=== PATIENT | female | born 1975 | race Caucasian/White ===

== ENCOUNTER 2016-12-11 14:54 | Emergency (ER) | payer SELFPAY ==
[~2016-12-11 14:54] MED LIST: ALPR1CON PO; ASPI325T PO; IBUP800T23 PO; LORTA10 PO
[2016-12-11 15:38] VITALS: BP 113/54; PULSE 143; RESP 20; TEMP 99.2; O2SAT 95
--- NOTE | 2016-12-11 15:50 | PD ---
HPI Chief Complaint: Psychiatric Symptoms Time Seen by Provider: 15:48 Travel History International Travel<30 days: No Contact w/Intl Traveler<30days: No Traveled to known affect area: No History of Present Illness HPI 41-year-old Afro-[place] female brought in under the tab ticketbroker act with obvious acute intoxication and agitation with altered mental status. Patient is directable but confused and agitated. Further medical history is unable to be obtained due to the patient's clinical status. She is allergic to sulfa. PFSH Past Medical History Medical History: Unable to Obtain Anxiety: Yes Musculoskeletal: Yes (SCOLIOSIS) Social History Alcohol Use: No Tobacco Use: Yes (1 PPD) Substance Use: Yes (IV DRUG USE) Allergies-Medications (Allergen,Severity, Reaction): Coded Allergies: Sulfa (Verified Allergy, Unknown, 11/27/13) Reported Meds & Prescriptions Reported Meds & Active Scripts Active Reported Ibuprofen 800 Mg Tab 800 Mg PO Q6H PRN Aspirin 325 Mg Tab (Aspirin) 325 Mg Tab 325 Mg PO Q6H PRN Xanax (Alprazolam) 1 Mg/Ml Con 2 Mg PO TID Lortab 10/325 Tab (Hydrocodone-Acetaminophen) 10 Mg/325 Mg Tab 1 Tab PO TID PRN Review of Systems ROS Limitations: Intoxication, Altered Mental Status, Psychotic Physical Exam Narrative GENERAL: Patient is agitated with generalized movements while sitting in the chair. Patient is obviously intoxicated. SKIN: Warm and dry. No signs of trauma. No obvious signs of puncture wounds, but exam is limited as we are in the ambulance cardona. HEAD: Atraumatic. Normocephalic. EYES: Pupils equal and round. No scleral icterus. No injection or drainage. ENT: No nasal bleeding or discharge. Mucous membranes pink and moist. Pharynx is clear. NECK: Trachea midline. Neck is supple. CARDIOVASCULAR: Tachycardic rate and normal rhythm. RESPIRATORY: No accessory muscle use. Clear to auscultation. Breath sounds equal bilaterally. MUSCULOSKELETAL: Extremities without clubbing, cyanosis, or edema. No obvious deformities. NEUROLOGICAL: Awake and alert. No obvious cranial nerve deficits. Motor grossly within normal limits. Five out of 5 muscle strength in the arms and legs. Normal speech. PSYCHIATRIC: Appropriate mood and affect; insight and judgment normal. Data Data Last Documented VS Vital Signs Date Time Temp Pulse Resp B/P Pulse Ox O2 Delivery O2 Flow Rate FiO2 3/6/17 15:38 99.2 143 20 113/54 95 Room Air Orders Complete Blood Count With Diff (12/11/16 15:40) Comprehensive Metabolic Panel (12/11/16 15:40) Urinalysis - C+S If Indicated (12/11/16 15:40) Ed Urine Pregnancytest Poc (12/11/16 15:40) Psych Screen (12/11/16 15:40) Drug Screen, Random Urine (12/11/16 15:40) Alcohol (Ethanol) (12/11/16 15:40) Urine Culture (12/11/16 15:40) Lorazepam Inj (Ativan Inj) (12/11/16 16:30) Diphenhydramine Inj (Benadryl Inj) (12/11/16 16:30) Haloperidol Inj (Haldol Inj) (12/11/16 16:30) Sodium Chlor 0.9% 1000 Ml Inj (Ns 1000 M (12/11/16 16:45) Ceftriaxone Inj (Rocephin Inj) (12/11/16 16:45) Labs Laboratory Tests Test 12/11/16 15:40 White Blood Count 19.1 TH/MM3 Red Blood Count 4.48 MIL/MM3 Hemoglobin 13.5 GM/DL Hematocrit 39.9 % Mean Corpuscular Volume 89.1 FL Mean Corpuscular Hemoglobin 30.2 PG Mean Corpuscular Hemoglobin 33.9 % Concent Red Cell Distribution Width 12.8 % Platelet Count 297 TH/MM3 Mean Platelet Volume 7.6 FL Neutrophils (%) (Auto) 84.6 % Lymphocytes (%) (Auto) 6.4 % Monocytes (%) (Auto) 8.4 % Eosinophils (%) (Auto) 0.3 % Basophils (%) (Auto) 0.3 % Neutrophils # (Auto) 16.1 TH/MM3 Lymphocytes # (Auto) 1.2 TH/MM3 Monocytes # (Auto) 1.6 TH/MM3 Eosinophils # (Auto) 0.1 TH/MM3 Basophils # (Auto) 0.1 TH/MM3 CBC Comment DIFF FINAL Differential Comment Urine Color YELLOW Urine Turbidity HAZY Urine pH 6.0 Urine Specific [place] 1.020 Urine Protein 30 mg/dL Urine Glucose (UA) NEG mg/dL Urine Ketones NEG mg/dL Urine Occult Blood NEG Urine Nitrite NEG Urine Bilirubin NEG Urine Urobilinogen 2.0 MG/DL Urine Leukocyte Esterase TRACE Urine RBC 6 /hpf Urine WBC 10 /hpf Urine Squamous Epithelial 4 /hpf Cells Urine Bacteria RARE /hpf Urine Hyaline Casts 20 /lpf Urine Mucus FEW /lpf Microscopic Urinalysis Comment CULTURE INDICATED Sodium Level 146 MEQ/L Potassium Level 3.9 MEQ/L Chloride Level 110 MEQ/L Carbon Dioxide Level 24.1 MEQ/L Anion Gap 12 MEQ/L Blood Urea Nitrogen 18 MG/DL Creatinine 1.84 MG/DL Estimat Glomerular Filtration 30 ML/MIN Rate Random Glucose 84 MG/DL Calcium Level 9.3 MG/DL Total Bilirubin 0.7 MG/DL Aspartate Amino Transf 48 U/L (AST/SGOT) Alanine Aminotransferase 57 U/L (ALT/SGPT) Alkaline Phosphatase 105 U/L Total Protein 8.7 GM/DL Albumin 4.3 GM/DL Urine Opiates Screen NEG Urine Barbiturates Screen NEG Urine Amphetamines Screen POS Urine Benzodiazepines Screen NEG Urine Cocaine Screen NEG Urine Cannabinoids Screen NEG Ethyl Alcohol Level LESS THAN 3 MG/DL MDM Medical Decision Making Medical Screen Exam Complete: Yes Emergency Medical Condition: Yes Differential Diagnosis Bishop act. Polysubstance abuse. Intoxication. Agitation. Narrative Course Patient is agitated throughout my exam but redirectable. Labs are obtained including CBC, CMP, urinalysis, urine , urine drug screen, serum alcohol level. 1620 hrs. the patient is becoming more agitated and having difficulty sitting in the chair. Orders were placed for 2 mg lorazepam IM, 50 mg Benadryl IM, and 5 mg Haldol IM. Patient is still awaiting either J pod or medical bed. CBC shows slightly elevated white blood cell count of 19.1. Sodium is elevated at 146, chloride is 110. Creatinine is 1.84. AST and ALTs slightly elevated at 40 and 57 respectively. Total protein is 8.7. Urinalysis is questionable for UTI with only a trace leukocyte esterase, 6 RBCs , 10 WBCs per high-power field and rare bacteria and few mucus. Urine drug screen is positive for amphetamines. Alcohol is less than 3. 1640 hrs. patient is moved to [facility] pod, and patient was discussed with Dr. Castellanos who will assume care of the patient. Condition: Stable Richard Maria Dec 11, 2016 15:50
[2016-12-11 15:57] LABS: AUTOMATED NEUTROPHIL # 16.1 TH/MM3 (1.8-7.7); BASOPHIL # 0.1 TH/MM3 (0-0.2); BASOPHIL % 0.3 % (0.0-2.0); EOSINOPHIL # 0.1 TH/MM3 (0-0.4); EOSINOPHIL % 0.3 % (0.0-4.0); HEMATOCRIT 39.9 % (35.0-46.0); HEMO FLAGS DIFF FINAL; LYMPH % 6.4 % (9.0-44.0); LYMPHOCYTE # 1.2 TH/MM3 (1.0-4.8); MEAN CELL VOLUME 89.1 FL (80.0-100.0); MEAN CORPUSCULAR HEMOGLOBIN 30.2 PG (27.0-34.0); MEAN CORPUSCULAR HGB CONC 33.9 % (32.0-36.0); MONO % 8.4 % (0.0-8.0); NEUT % 84.6 % (16.0-70.0); PLATELET COUNT 297 TH/MM3 (150-450); RED BLOOD COUNT 4.48 MIL/MM3 (4.00-5.30); RED CELL DISTRIBUTION WIDTH 12.8 % (11.6-17.2); WHITE BLOOD COUNT 19.1 TH/MM3 (4.0-11.0)
[2016-12-11 16:00] LABS: BACTERIA, URINE RARE /hpf; BLOOD, URINE NEG (NEG); COMMENT (UR) CULTURE INDICATED; CULTURE IF INDICATED CULTURE INDICATED; GLUCOSE,URINE NEG (NEG); HYALINE CAST, URINE 20 /lpf (RARE); KETONE, URINE NEG (NEG); MUCUS URINE FEW /lpf (OCC); NITRITE,URINE NEG (NEG); SQUAMOUS EPITHELIAL CELL URINE 4 /hpf (0-5); URINE COLOR YELLOW (YELLW/STRAW)
[2016-12-11 16:16] LABS: AMPHETAMINE, URINE POS (NEG); BARBITURATES, URINE NEG (NEG); COCAINE, URINE NEG (NEG)
[2016-12-11 16:20] LABS: ALT (GPT) 57 U/L (10-53); ANION GAP 12 MEQ/L (5-15); AST (GOT) 48 U/L (15-37); BICARBONATE 24.1 MEQ/L (21.0-32.0); BLOOD UREA NITROGEN 18 MG/DL (7-18); CHLORIDE 110 MEQ/L (98-107); GLOMERULAR FILTRATION RATE 30 ML/MIN (>89); POTASSIUM 3.9 MEQ/L (3.5-5.1); SODIUM (NA) 146 MEQ/L (136-145)
[2016-12-11 16:22] LABS: ALKALINE PHOSPHATASE 105 U/L (45-117); TOTAL BILIRUBIN ADULT 0.7 MG/DL (0.2-1.0)
[2016-12-11] MEDS ORDERED: HALOPERIDOL LACTATE 5 MG/ML AMP IM ONE (16:30)
[2016-12-11] MEDS ORDERED: diphenhydrAMINE HCL 50 MG/ML VIAL IV PUSH ONE ×2 (16:30→17:00)
[2016-12-11] MEDS ORDERED: LORazepam 2 MG/ML VIAL IM ONE (16:30)
[2016-12-11] MEDS ORDERED: SODIUM CHLOR 0.9% 1000 ML INJ 1,000 ML IV ONE ×2 (16:45→17:45)
[2016-12-11] MEDS ORDERED: cefTRIAXone INJ 1,000 MG in SODIUM CHLORIDE 0.9% INJ 100 ML IV ONE (16:45)
[2016-12-11 16:51] VITALS: BP 144/100; PULSE 121; RESP 20; TEMP 98.2; O2SAT 95
[2016-12-11] MEDS ORDERED: diphenhydrAMINE HCL 50 MG/ML VIAL IM STA (16:51)
--- NOTE | 2016-12-11 17:02 | PD ---
Physical Exam Date Seen by Provider: Dec 11, 2016 Data Data Last Documented VS Vital Signs Date Time Temp Pulse Resp B/P Pulse Ox O2 Delivery O2 Flow Rate FiO2 12/11/16 17:14 110 22 112/68 95 Nasal Cannula 2 12/11/16 16:51 98.2 Orders Complete Blood Count With Diff (12/11/16 15:40) Comprehensive Metabolic Panel (12/11/16 15:40) Urinalysis - C+S If Indicated (12/11/16 15:40) Ed Urine Pregnancytest Poc (12/11/16 15:40) Psych Screen (12/11/16 15:40) Drug Screen, Random Urine (12/11/16 15:40) Alcohol (Ethanol) (12/11/16 15:40) Urine Culture (12/11/16 15:40) Lorazepam Inj (Ativan Inj) (12/11/16 16:30) Diphenhydramine Inj (Benadryl Inj) (12/11/16 16:30) Haloperidol Inj (Haldol Inj) (12/11/16 16:30) Sodium Chlor 0.9% 1000 Ml Inj (Ns 1000 M (12/11/16 16:45) Ceftriaxone Inj (Rocephin Inj) (12/11/16 16:45) Diphenhydramine Inj (Benadryl Inj) (12/11/16 17:00) Diphenhydramine Inj (Benadryl Inj) (12/11/16 16:51) Sodium Chlor 0.9% 1000 Ml Inj (Ns 1000 M (12/11/16 17:45) Labs Laboratory Tests Test 12/11/16 15:40 White Blood Count 19.1 TH/MM3 Red Blood Count 4.48 MIL/MM3 Hemoglobin 13.5 GM/DL Hematocrit 39.9 % Mean Corpuscular Volume 89.1 FL Mean Corpuscular Hemoglobin 30.2 PG Mean Corpuscular Hemoglobin 33.9 % Concent Red Cell Distribution Width 12.8 % Platelet Count 297 TH/MM3 Mean Platelet Volume 7.6 FL Neutrophils (%) (Auto) 84.6 % Lymphocytes (%) (Auto) 6.4 % Monocytes (%) (Auto) 8.4 % Eosinophils (%) (Auto) 0.3 % Basophils (%) (Auto) 0.3 % Neutrophils # (Auto) 16.1 TH/MM3 Lymphocytes # (Auto) 1.2 TH/MM3 Monocytes # (Auto) 1.6 TH/MM3 Eosinophils # (Auto) 0.1 TH/MM3 Basophils # (Auto) 0.1 TH/MM3 CBC Comment DIFF FINAL Differential Comment Urine Color YELLOW Urine Turbidity HAZY Urine pH 6.0 Urine Specific [place] 1.020 Urine Protein 30 mg/dL Urine Glucose (UA) NEG mg/dL Urine Ketones NEG mg/dL Urine Occult Blood NEG Urine Nitrite NEG Urine Bilirubin NEG Urine Urobilinogen 2.0 MG/DL Urine Leukocyte Esterase TRACE Urine RBC 6 /hpf Urine WBC 10 /hpf Urine Squamous Epithelial 4 /hpf Cells Urine Bacteria RARE /hpf Urine Hyaline Casts 20 /lpf Urine Mucus FEW /lpf Microscopic Urinalysis Comment CULTURE INDICATED Sodium Level 146 MEQ/L Potassium Level 3.9 MEQ/L Chloride Level 110 MEQ/L Carbon Dioxide Level 24.1 MEQ/L Anion Gap 12 MEQ/L Blood Urea Nitrogen 18 MG/DL Creatinine 1.84 MG/DL Estimat Glomerular Filtration 30 ML/MIN Rate Random Glucose 84 MG/DL Calcium Level 9.3 MG/DL Total Bilirubin 0.7 MG/DL Aspartate Amino Transf 48 U/L (AST/SGOT) Alanine Aminotransferase 57 U/L (ALT/SGPT) Alkaline Phosphatase 105 U/L Total Protein 8.7 GM/DL Albumin 4.3 GM/DL Urine Opiates Screen NEG Urine Barbiturates Screen NEG Urine Amphetamines Screen POS Urine Benzodiazepines Screen NEG Urine Cocaine Screen NEG Urine Cannabinoids Screen NEG Ethyl Alcohol Level LESS THAN 3 MG/DL [facility] Medical Record Reviewed: Yes Supervised Visit with YEIMY: Yes Interpretation(s) Vital Signs Date Time Temp Pulse Resp B/P Pulse Ox O2 Delivery O2 Flow Rate FiO2 12/11/16 16:51 98.2 121 20 144/100 95 Room Air 12/11/16 15:38 99.2 143 20 113/54 95 Room Air CBC & BMP Diagram 12/11/16 15:40 Differential Diagnosis Bishop act, alcohol intoxication, possible substance abuse, dehydration, electrolyte abnormality Narrative Course I, Dr. Castellanos, have reviewed the advance practice practitioner's documentation and am in agreement, met with the patient face to face, made the diagnosis, and the medical decision making was done by me. *My assessment and Findings: Bishop act underlying intoxication and agitation Patient is a 41-year-old female who was brought to the emergency room by police officers under Bishop act. As per police officers, patient was found on the side of the road confused and agitated. Patient reports that she is upset as her boyfriend left her, patient denies any use of drugs or alcohol at this time. Patient is severely agitated and appears dystonic. Patient was ordered Haldol and Ativan as well as Benadryl prior to arrival during initial assessment by YEIMY. Patient does have a WBC of 19.1 - this could be secondary to infection vs stress response ua shows hazy urine with trace leuk esterase and rare bacteria and 10 white blood cells, urine culture sent, will give patient a dose of antibiotics for treatment of UTI Patient's creatinine is 1.84 for which is elevated from baseline patient appears to be dehydrated, will give IV fluids Tox screen positive for amphetamines Patient will require psychiatric screening once sober Diagnosis Primary Impression: UTI (urinary tract infection) Qualified Code: N30.00 - Acute cystitis without hematuria Additional Impressions: Renal insufficiency Hypernatremia Dehydration Patient Instructions: General Instructions Additional Instruction: Please provide patient with a copy of her labwork at discharge Please follow-up with your primary care doctor and return to emergency room as needed Please take all antibiotics as prescribed, follow up with all cultures from today Scripts Nitrofurantoin Monohydrate Macrocrystals (Macrobid)100 Mg [id number] Mg PO BID 10 Days Ref 0 Prov:Cathy Castellanos DO 12/11/16 Cathy Castellanos DO Dec 11, 2016 17:02
[2016-12-11 17:14] VITALS: BP 112/68; PULSE 110; RESP 22; O2SAT 95
[2016-12-11 18:00] VITALS: BP 96/58; PULSE 89; RESP 16; O2SAT 99
[2016-12-11] MEDS ORDERED: MACR100C2 PO (18:00)
[2016-12-11 20:30] VITALS: BP 89/63; PULSE 80; RESP 16; O2SAT 99
[2016-12-12 02:55] VITALS: BP 108/74; PULSE 89; RESP 18; O2SAT 99
[2016-12-12 05:56] VITALS: BP 91/53; PULSE 88; RESP 18; O2SAT 99
[2016-12-12 07:30] VITALS: BP 102/68; PULSE 78; RESP 16; O2SAT 97
--- NOTE | 2016-12-12 11:13 | PD.CONS ---
Provisional Diagnosis Admission Date [place] I. Substance induced mood disorder, amphetamine use disorder [place] II. Deferred [place] III. She denies History of Present Illness Service Psychiatry Consult Requested By Primary Care Physician Unknown HPI The patient is a 41 years old woman, domicile with a friend, single, unemployed , without any previous psychiatric history, no significant medical problem, who was brought to the ER under Bishop at due to erratic behavior in the street. According with the Bishop act patient was caught walking with her pants in in her head. In the ER patient was agitated, hostile and aggressive, was given Haldol 5 mg, Benadryl 50 mg Ativan 2 mg IM to help the patient to come down. Automatic evaluation today patient is is still a little bit sedated, superficially cooperative, she states she doesn't remember the circumstances that brought to the hospital. She denies the use of drugs, she says that " maybe some drugs were put into my drinks". She denies depressive symptoms, she denies anxiety, she denies perceptual disturbances, she denies suicidal ideation. She denies visual and auditory hallucinations.. Review of Systems Constitutional: DENIES: Diaphoretic episodes, Fatigue, Fever, Weight gain, Weight loss, Chills, Dizziness, Change in appetite, Night Sweats Endocrine: DENIES: Abnorml menstrual pattern, Heat/cold intolerance, Polydipsia , Polyuria, Polyphagia Eyes: DENIES: Blurred vision, Diplopia, Eye inflammation, Eye pain, Vision loss , Photosensitivity, Double Vision Ears, nose, mouth, throat: DENIES: Tinnitus, Hearing loss, Vertigo, Nasal discharge, Oral lesions, Throat pain, Hoarseness, Ear Pain, Running Nose, Epistaxis, Sinus Pain, Toothache, Odynophagia Respiratory: DENIES: Apneas, Cough, Snoring, Wheezing, Hemoptysis, Sputum production, Shortness of breath Cardiovascular: DENIES: Chest pain, Palpitations, Syncope, Dyspnea on Exertion , PND, Lower Extremity Edema, Orthopnea, Claudication Gastrointestinal: DENIES: Abdominal pain, Black stools, Bloody stools, Constipation, Diarrhea, Nausea, Vomiting, Difficulty Swallowing, Anorexia Musculoskeletal: DENIES: Joint pain, Muscle aches, Stiffness, Joint Swelling, Back pain, Neck pain Integumentary: DENIES: Abnormal pigmentation, Pruritus, Rash, Nail changes, Breast masses, Breast skin changes, Nipple discharge Hematologic/lymphatic: DENIES: Bruising, Lymphadenopathy Immunologic/allergic: DENIES: Eczema, Urticaria Neurologic: DENIES: Abnormal gait, Headache, Localized weakness, Paresthesias, Seizures, Speech Problems, Tremor, Poor Balance Past Family Social History Coded Allergies: Sulfa (Verified Allergy, Unknown, 11/27/13) Active Scripts Nitrofurantoin Monohydrate Macrocrystals (Macrobid)100 Mg [id number] Mg PO BID 10 Days Ref 0 Prov:Cathy Castellanos DO 12/11/16 Family History She denies Social History Patient is with friends in [place], she is unemployed, single, high level of education is high school Physical Exam Vital Signs Vital Signs Date Time Temp Pulse Resp B/P Pulse Ox O2 Delivery O2 Flow Rate FiO2 12/12/16 07:30 78 16 102/68 97 Room Air 12/11/16 20:30 2 12/11/16 16:51 98.2 Mental Status Examination Speech: Hesitant, Incoherent Orientation: x3 Memory: Unremarkable Thought Process: Logical Thought Content: Unremarkable Hallucination Type: None Suicidal Ideation: No Previous Suicide Attempts: No Homicidal Ideation: No Previous Homicide Attempts: No Judgement: Impulsive Affect: Irritable Mood: Irritable Motor Activity: Normal gait Assessment & Plan Problem List: (1) Substance induced mood disorder Assessment & Plan: At the moment of this evaluation patient does not present any evidence of subjective or objective depression, anxiety, antony, or perceptual disturbances. She denies suicidal or homicidal ideation, she denies visual and auditory hallucinations. Erratic behavior described by police Bishop act report was probably secondary to acute intoxication with amphetamines. She does not meet criteria for psychiatric admission at this moment. Extensive psychoeducation, supportive motivation provided. Bishop at will be lifted. ICD Code: F19.94 Assessment & Plan Estimated LOS: Gerard Zelaya MD Dec 12, 2016 11:13
[2016-12-12 15:07] VITALS: BP 101/63; PULSE 89; RESP 18; O2SAT 98
[2016-12-12 22:09] VITALS: BP 104/69; PULSE 84; RESP 17; O2SAT 99
[2016-12-13 02:11] VITALS: BP 109/60; PULSE 66; RESP 18; O2SAT 97
== END 2016-12-13 04:02 | disposition home or self-care (01) ==
LOC: NEPC 14:54 → NEPJ 12-13 04:02
DX: N39.0 Urinary tract infection, site not specified (principal); E86.0 Dehydration; N28.9 Disorder of kidney and ureter, unspecified; E87.0 Hyperosmolality and hypernatremia; F41.9 Anxiety disorder, unspecified; F17.210 Nicotine dependence, cigarettes, uncomplicated; F19.20 Other psychoactive substance dependence, uncomplicated; F10.129 Alcohol abuse with intoxication, unspecified; R41.82 Altered mental status, unspecified; D72.829 Elevated white blood cell count, unspecified; B96.89 Other specified bacterial agents as the cause of diseases classified elsewhere; R41.9 Unspecified symptoms and signs involving cognitive functions and awareness
CPT/HCPCS: 80053; 80307; 81001; 84703; 85025; 87086; 96361; 96365; 96372; 99285; J0696; J1200; J1630; J2060; J7030